=== PATIENT | male | born 1980 | race Caucasian/White ===

== ENCOUNTER 2018-07-07 08:56 | Emergency (ER) | payer SELFPAY ==
[~2018-07-07] VITALS: Ht 177.8 cm; Wt 79.4 kg
[2018-07-07] MEDS ORDERED: ONDANSETRON 4 MG (ZOFRAN) ORAL DISSOLVE TAB SL STA (09:26)
[2018-07-07] MEDS ORDERED: PROM25TA14 PO (09:33)
--- NOTE | 2018-07-07 09:34 | ED GI ---
General Chief Complaint: Abdominal/GI Problems Stated Complaint: CHILLS; VOMITING; NAUSEA; DIZZY Nursing Triage Note: TO ROOM 04 WITH COMPLAINTS OF N/V/CHILLES/DIZZINESS STARTING APPX 0400 TODAY. Sepsis Screen: No Definite Risk Source of Information: Patient Exam Limitations: No Limitations History of Present Illness Date Seen by Provider: Jul 07, 2018 Time Seen by Provider: 09:20 Initial Comments Here with report of nausea, vomiting, chills and dizziness that started about 4 this morning. He went to work and had to vomit. He was sent home from there. Arrives with feeling of nausea and stomach cramping. Ate well last night without any difficulty and no other people that ate with him are sick currently. Timing/Duration: 4-6 Hours Severity/Quality: Moderate, Cramping Location: Epigastric Radiation: No Radiation Modifying Factors: Worsens With Eating Associated Symptoms: No Fever/Chills; Nausea/Vomiting; No Shortness of Air Allergies and Home Medications Allergies Coded Allergies: No Known Drug Allergies (Unverified , 07/07/18) Home Medications No Active Prescriptions or Reported Meds Patient Home Medication List Home Medication List Reviewed: Yes Review of Systems Review of Systems Constitutional: see HPI Respiratory: No Symptoms Reported Cardiovascular: No Symptoms Reported Gastrointestinal: See HPI, Abdominal Pain, Nausea, Vomiting Genitourinary: No Symptoms Reported Musculoskeletal: back pain (right lower that he gets occasionally), muscle pain Skin: no symptoms reported Psychiatric/Neurological: No Symptoms Reported Past Rjvzoyl-Jvfknc-Mqzrbt Hx Past Med/Social Hx: Reviewed Nursing Past Med/Soc Hx Patient Social History Alcohol Use: Denies Use Recreational Drug Use: No Smoking Status: Current Everyday Smoker Recent Foreign Travel: No Contact w/Someone Who Travel: No Recent Infectious Disease Expo: No Recent Hopitalizations: No Past Medical History Surgeries: No Respiratory: No Cardiac: No Neurological: Yes Traumatic Brain Injury Genitourinary: No Gastrointestinal: No Musculoskeletal: No Endocrine: No HEENT: No Cancer: No Psychosocial: No Integumentary: No Family Medical History Reviewed Nursing Family Hx Physical Exam Vital Signs Vital Signs - First Documented 07/07/18 09:15 Temp 98.0 Pulse 86 Resp 16 B/P (MAP) 133/111 (118) Pulse Ox 97 O2 Delivery Room Air Capillary Refill : Less Than 3 Seconds Height/Weight/BMI Height: 5'10.00" Weight: 175lbs. oz. 79.729092hx; BMI Method:Estimated General Appearance: WD/WN, no apparent distress Respiratory: lungs clear, normal breath sounds Cardiovascular: regular rate, rhythm, no murmur Gastrointestinal: soft; No guarding, No rebound; tenderness (epigastric) Extremities: non-tender, normal inspection Back: no CVA tenderness, no vertebral tenderness, muscle spasm, other (mild right lower back pain at the SI joint with muscle spasm) Neurologic/Psychiatric: alert, oriented x 3 Skin: normal color, warm/dry Progress/Results/Core Measures Results/Orders My Orders Orders - BRANDAN OJEDA MD Ondansetron Oral Dissolve Tab (Zofran (07/07/18 09:26) Vital Signs/I&O 07/07/18 09:15 Temp 98.0 Pulse 86 Resp 16 B/P (MAP) 133/111 (118) Pulse Ox 97 O2 Delivery Room Air Blood Pressure Mean: 118 Progress Progress Note : Progress Note Seen and evaluated. I did discuss multiple options with the patient regarding evaluation and treatment. We will try oral Zofran now with Phenergan for home in a conservative approach with the patient to return if there is any worsening or he can keep fluids down. Patient was agreeable to this plan and preferred that if possible. This seems reasonable given his exam and current viral GI illnesses that are going around with similar presentation. Zofran 4 mg by mouth. Discharged home with return precautions. Patient verbalize understanding instructions and agreement with plan. Departure Impression Primary Impression: Nausea and vomiting Qualified Codes: R11.2 - Nausea with vomiting, unspecified Additional Impression: Epigastric abdominal pain Disposition: HOME, SELF-CARE Condition: Stable Departure-Patient Inst. Decision time for Depature: 09:32 Referrals: NO,LOCAL PHYSICIAN (PCP/Family) Primary Care Physician Patient Instructions: Acute Abdomen (Belly Pain), Adult (DC), Nausea and Vomiting, Adult (DC) Add. Discharge Instructions: All discharge instructions reviewed with patient and/or family. Voiced understanding. Clear liquid diet for the next 24 hours and then advance as tolerated. Drink fluids by taking small sips frequently of fluids such as water, Gatorade, Sprite or shadia norm. Take medications as directed. Get plenty of rest. Follow- up with your DrJennifer in a few days for recheck. Return for worse pain, inability to keep fluids down at all, weakness, decreased urination or other concerns as needed. Scripts Promethazine HCl (Promethazine Tablet) 25 Mg Tablet 25 MG PO Q8H PRN for NAUSEA/VOMITING, #10 TAB 0 Refills Prov: BRANDAN OJEDA MD 07/07/18 BRANDAN OJEDA MD Jul 07, 2018 09:33
[2018-07-07 09:38] VITALS: BP 133/111
== END 2018-07-07 09:38 | disposition home or self-care (01) ==
LOC: EDUNIT# 08:56 → ER FS 08:58
DX: R11.2 Nausea with vomiting, unspecified (principal); R10.13 Epigastric pain; F17.200 Nicotine dependence, unspecified, uncomplicated; Z87.820 Personal history of traumatic brain injury
CPT/HCPCS: 99283

== ENCOUNTER 2018-08-02 23:58 | Emergency (ER) | payer SELFPAY ==
[~2018-08-02] VITALS: Ht 175.3 cm; Wt 88.5 kg
[~2018-08-02 23:58] MED LIST: PROM25TA14 PO
--- NOTE | 2018-08-03 00:24 | ED Upper Extremity ---
General Chief Complaint: Laceration Stated Complaint: LEFT THUMB LACERATION Source: patient History of Present Illness Date Seen by Provider: Aug 03, 2018 Time Seen by Provider: 00:09 Initial Comments 38-year-old male presenting with complaints of laceration to his left thumb. He reports he was cutting deer ribs tonight and had just sharpened his knife. He had slipped and his knife went into his thumb. He had immediately stopped and came to the emergency department. He reports it has been more than 5 years since his last tetanus booster. He denies having any numbness or tingling to the thumb. He is still able to bend the thumb. He has no other injuries to his hand. Allergies and Home Medications Allergies Coded Allergies: No Known Drug Allergies (Unverified , 07/07/18) Home Medications Amoxicillin/Potassium Clav 1 Each Tablet, 1 EACH PO BID Prescribed by: ALISA BARON on 08/03/18 0218 Promethazine HCl 25 Mg Tablet, 25 MG PO Q8H PRN for NAUSEA/VOMITING Prescribed by: BRANDAN OJEDA on 07/07/18 0978 Patient Home Medication List Home Medication List Reviewed: Yes Review of Systems Constitutional: no symptoms reported EENTM: no symptoms reported Respiratory: no symptoms reported Cardiovascular: no symptoms reported Gastrointestinal: no symptoms reported Genitourinary: no symptoms reported Musculoskeletal: see HPI, other (pain to area where he cut his knuckle on left thumb) Skin: see HPI, other (laceration to knuckle on left thumb) Past Tfybevd-Bjbcsg-Lqxqzz Hx Past Med/Social Hx: Reviewed Nursing Past Med/Soc Hx Patient Social History Recent Foreign Travel: No Contact w/Someone Who Travel: No Recent Hopitalizations: No Past Medical History Surgeries: No Respiratory: No Cardiac: No Neurological: Yes Traumatic Brain Injury Genitourinary: No Gastrointestinal: No Musculoskeletal: No Endocrine: No HEENT: No Cancer: No Psychosocial: No Integumentary: No Physical Exam Vital Signs Vital Signs - First Documented 08/03/18 00:17 Temp 99.0 Pulse 109 Resp 21 B/P (MAP) 138/85 (102) Pulse Ox 95 O2 Delivery Room Air Capillary Refill : Height, Weight, BMI Height: 5'10.00" Weight: 175lbs. oz. 79.906079xd; BMI Method:Estimated General Appearance: WD/WN, no apparent distress HEENT: PERRL/EOMI, normal ENT inspection, pharynx normal Cardiovascular: normal peripheral pulses Hand: normal ROM, laceration (DIP joint laceration to left thumb. normal ROM. Normal sensation and no tendon or motor deficit) Neurologic/Tendon: normal sensation, normal motor functions, normal tendon functions Neurologic/Psychiatric: alert, normal mood/affect, oriented x 3 Skin: normal color, warm/dry Procedures/Interventions Wound Location: Upper Extremities (left thumb) Wound Length (cm): 1.8 Wound's Depth, Shape: sub Q Wound Explored: clean Anesthesia: 1% Lidocaine (ring block) Suture: Ethlion Suture Size: 4-0 Number of Sutures: 5 Layer Closure?: 1 Sterile Dressing Applied?: Yes Progress After obtaining informed consent the patient had 1% plain lidocaine injected his ring block at the base of the thumb. Then the wound was cleaned with surgical soap and sterile water. Then using 4-0 Ethilon in simple or updated stitches a total of 5 single stitches were applied. The wound edges were well approximated. The wound was explored and there were no foreign bodies visualized and it did not appear to be deep enough to involve the joint capsule or bone. He tolerated the procedure well and without any immediate complications. Progress/Results/Core Measures Results/Orders My Orders Orders - ALISA BARON MD Dipht,Maria Elena(Acell),Tet Adult (Boostrix (08/03/18 00:30) Lidocaine 1% Inj 20 Ml (Xylocaine 1% Inj (08/03/18 00:30) Suture Set At Bedside (08/03/18 00:25) Orthopedic Equiment (08/03/18 02:08) Amoxicillin/Clavulanate Tablet (Augmenti (08/03/18 07:00) Amoxicillin/Clavulanate Tablet (Augmenti (08/03/18 02:20) Medications Given in ED Current Medications Medications Dose Ordered Sig/Rroo Route Start Time Stop Time Status Last Admin Dose Admin Diphtheria/ Tetanus/Acell Pertussis 0.5 ml ONCE ONCE IM 08/03/18 00:30 08/03/18 00:31 DC 08/03/18 00:35 0.5 ML Lidocaine HCl 20 ml ONCE ONCE INJ 08/03/18 00:30 08/03/18 00:31 DC 08/03/18 00:34 20 ML Vital Signs/I&O 08/03/18 08/03/18 00:17 02:31 Temp 99.0 Pulse 109 95 Resp 21 16 B/P (MAP) 138/85 (102) 138/113 (121) Pulse Ox 95 95 O2 Delivery Room Air Room Air Progress Progress Note : Time: 00:20 Progress Note update tetanus booster and will clean and repair laceration of the left thumb. 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 Departure Impression Primary Impression: Laceration of left thumb without foreign body without damage to nail Qualified Codes: S61.012A - Laceration without foreign body of left thumb without damage to nail, initial encounter Disposition: HOME, SELF-CARE Condition: Stable Departure-Patient Inst. Decision time for Depature: 02:14 Referrals: NO,LOCAL PHYSICIAN (PCP/Family) Primary Care Physician Patient Instructions: Diphtheria and Tetanus Toxoids, and Acellular Pertussis Vaccine, Laceration Repair With Stitches (DC) Add. Discharge Instructions: Limit use of your left thumb for the next two weeks while the stitches are in and the cut is healing over your knuckle. You will need to have the stitches removed in about 2 weeks and check with the clinic sooner if you are having signs of infection such as redness streaking up your hand, fever over 101 F, or increasing pain. Keep the wound dry and covered for the first 24 hours then may wash with soap and water but do not soak it. Keep it covered when you are at work or it might get dirty. All discharge instructions reviewed with patient and/or family. Voiced understanding. Scripts Amoxicillin/Potassium Clav (Augmentin 875-125 Tablet) 1 Each Tablet 1 EACH PO BID for laceration for 7 Days, #14 TAB 0 Refills Prov: ALISA BARON MD 08/03/18 Work/School Note: Work Release Form Date Seen in the Emergency Department: Aug 03, 2018 Return to Work: Aug 04, 2018 Other Restrictions Listed Below: Light duty. Limit use of left thumb x 2 weeks. Keep wound covered. ALISA BARON MD Aug 03, 2018 00:24
[2018-08-03] MEDS ORDERED: LIDOCAINE 1% INJ 20 ML 20 ML VIAL INJ ONE (00:30)
[2018-08-03] MEDS ORDERED: TETANUS,DIPTH,PERTUSS P/F (BOOSTRIX) 0.5 ML VIAL IM ONE (00:30)
[2018-08-03] MEDS ORDERED: AMOX-358 PO (02:18)
[2018-08-03] MEDS ORDERED: AUGMENTIN 875 MG TAB (AMOXICILLIN/CLAVULANATE) PO STA (02:20)
[2018-08-03 02:31] VITALS: BP 138/113
[2018-08-03] MEDS ORDERED: AUGMENTIN 875 MG TAB (AMOXICILLIN/CLAVULANATE) PO SCH (07:00)
== END 2018-08-03 02:31 | disposition home or self-care (01) ==
LOC: EDUNIT# 23:58 → ER FS 08-03
DX: S61.012A Laceration without foreign body of left thumb without damage to nail, initial encounter (principal); Z87.820 Personal history of traumatic brain injury; Z23 Encounter for immunization; W26.0XXA Contact with knife, initial encounter
CPT/HCPCS: 64450; 90715

== ENCOUNTER 2021-05-13 00:16 | Emergency (ER) | payer SELFPAY ==
[~2021-05-13] VITALS: Ht 172 cm; Wt 81.6 kg
[~2021-05-13 00:16] MED LIST changes: +AMOX-358 PO
[2021-05-13] MEDS ORDERED: LIDOCAINE 1% INJ 20 ML VIAL INJ STA (00:37)
--- NOTE | 2021-05-13 01:09 | ED Upper Extremity ---
General Chief Complaint: Laceration Stated Complaint: RIGHT FINGER LACERATION Nursing Triage Note: Pt cut his right pinky with a knife x 40 minutes ago. Reports tetanus is up-to-date. Bleeding is controlled. Source: patient History of Present Illness Date Seen by Provider: May 13, 2021 Time Seen by Provider: 00:21 Initial Comments 41 yo male presenting with complaints of a laceration to his right pinky finger. He was trying to catch tomato for a cheeseburger and cut into his finger by accident. He was having trouble getting the bleeding to stop at home so he came in to be seen. He has normal sensation and movement. He has tetanus booster from July 2018. He denies any other injuries. He states the accident happened about 30 to 45 minutes prior to arrival in the ED. Bleeding is controlled currently with pressure dressing. Onset: just prior to arrival Severity: mild Pain/Injury Location: right 5th finger Method of Injury: incised Modifying Factors: Worse With Movement Allergies and Home Medications Allergies Coded Allergies: No Known Drug Allergies (Unverified , 07/07/18) Patient Home Medication List Home Medication List Reviewed: Yes Amoxicillin/Potassium Clav (Augmentin 875-125 Tablet) 1 Each Tablet, 1 EACH PO BID Prescribed by: ALISA BARON on 08/03/18 0218 Promethazine HCl (Promethazine Tablet) 25 Mg Tablet, 25 MG PO Q8H PRN for NAUS EA/VOMITING Prescribed by: BRANDAN OJEDA on 07/07/18 0933 Review of Systems Constitutional: No chills, No fever EENTM: no symptoms reported Respiratory: no symptoms reported Cardiovascular: no symptoms reported Gastrointestinal: no symptoms reported Genitourinary: no symptoms reported Musculoskeletal: see HPI Skin: see HPI Psychiatric/Neurological: Denies Numbness, Denies Paresthesia Past Zvjkmsc-Oaevgb-Dihqyn Hx Patient Social History Tobacco Use?: Yes Tobacco type used: Cigarettes Use of E-Cig and/or Vaping dev: No Substance use?: No Alcohol Use?: Yes Alcohol Frequency: Several times a month Pt feels they are or have been: No Immunizations Up To Date Tetanus Booster (TDap): More than 5yrs First/Initial COVID19 Vaccinat: denies Seasonal Allergies Seasonal Allergies: No Past Medical History Surgery/Hospitalization HX: Traumatic brain injury Surgeries: No Respiratory: No Cardiac: No Neurological: No Traumatic Brain Injury Genitourinary: No Gastrointestinal: No Musculoskeletal: No Endocrine: No HEENT: No Cancer: No Psychosocial: No Integumentary: No Blood Disorders: No Physical Exam Vital Signs Vital Signs - First Documented 05/13/21 00:41 Temp 36.5 Pulse 104 Resp 17 B/P (MAP) 155/82 (106) Pulse Ox 97 O2 Delivery Room Air Capillary Refill : Less Than 3 Seconds Height, Weight, BMI Height: 5'9.00" Weight: 195lbs. oz. 88.678104tl; 27.00 BMI Method:Stated General Appearance: WD/WN, no apparent distress Cardiovascular: normal peripheral pulses, regular rate, rhythm Hand: normal ROM, Right, laceration (1.4 cm laceration to the PIP joint of the right pinky finger. 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 Then using chlorhexidine scrub soap and sterile water the wound was cleaned with sterile gauze. The wound was then prepped and draped in a sterile fashion. Using 4-0 Ethilon a total of 3 simple interrupted stitches were used to approximate the wound edges. Patient tolerated procedure well without any immediate complication. Counseled on follow-up and return precautions. Advised to have stitches out in 10 to 14 days. Be seen sooner if having signs of infection Progress/Results/Core Measures Results/Orders My Orders Orders - ALISA BARON MD Lidocaine 1% Inj 20 Ml (Xylocaine 1% Inj (05/13/21 00:37) Suture Set At Bedside (05/13/21 00:37) Wound Dressing-Ed (05/13/21 00:37) Vital Signs/I&O 05/13/21 05/13/21 00:41 01:12 Temp 36.5 Pulse 104 90 Resp 17 15 B/P (MAP) 155/82 (106) 133/80 Pulse Ox 97 97 O2 Delivery Room Air Room Air Blood Pressure Mean: 106 Progress Progress Note : Progress Note Verbally consented for repair of the laceration. His last tetanus was July 2018. Counseled on follow-up and return precautions of having his stitches out in 10 to 14 days. Departure Impression Primary Impression: Laceration of right little finger w/o foreign body w/o damage to nail Qualified Codes: S61.216A - Laceration without foreign body of right little finger without damage to nail, initial encounter Disposition: HOME, SELF-CARE Condition: Improved Departure-Patient Inst. Decision time for Depature: 01:07 Referrals: NO,LOCAL PHYSICIAN (PCP) Primary Care Physician [facility] [phone] to establish care with a primary care provider Patient Instructions: Laceration Repair With Stitches ED Add. Discharge Instructions: Keep wound clean and dry for the first 24 hours. After that you may remove the dressing and wash with soap and water but do not soak the wound. After the first 24 hours you could cover the wound with a Band-Aid and use the finger splint to help prevent excessive bending of the joint. If the wound will not get dirty you would not have to use the Band-Aid to keep it covered. Use the splint for the next 10 to 14 days until the stitches are removed. You could return to the emergency department to have the stitches out in 10 to 14 days. Be seen sooner if you are having concerns for infection such as redness streaking up your hand, fever over 101 Fahrenheit, pus draining from the wound. All discharge instructions reviewed with patient and/or family. Voiced understanding. ALISA BARON MD May 13, 2021 01:09
[2021-05-13 01:12] VITALS: BP 133/80
== END 2021-05-13 01:12 | disposition home or self-care (01) ==
LOC: EDUNIT# 00:16 → ER FS 00:19
DX: S61.216A Laceration without foreign body of right little finger without damage to nail, initial encounter (principal); Z87.820 Personal history of traumatic brain injury; Z72.0 Tobacco use; W26.8XXA Contact with other sharp object(s), not elsewhere classified, initial encounter
CPT/HCPCS: 99282